=== PATIENT | female | born 1955 | race Two or more races ===

== ENCOUNTER 2025-02-18 11:45 | Inpatient (IN) | payer MEDICAID, OTHER ==
[~2025-02-18] VITALS: Ht 152.4 cm; Wt 64.7 kg
--- NOTE | 2025-02-18 12:17 | ED.PDOC ---
History of Present Illness HPI Comments 69 y/o F, with PMHx of HTN presents to the ED for CC of high blood pressure. Patient states, she has been experiencing hypertensive blood pressure readings with associated palpitations for multiple days. Patient reports, that she has been out of her blood pressure medications d/t recently losing medical coverage and has not taken medication since. Upon arrival to the ED, patient is hypertensive with a blood pressure of 210/105mmHg and is tachycardic with a HR of 129bpm. Patient was transferred to ED Bed 14 and care is ongoing at this time. 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 Family History Family History: Unknown Social History Smoker: Non-Smoker Alcohol: Denies ETOH Use Drugs: Denies Drug Use Lives In: Home Constitutional: denies: chills, diaphoresis, fatigue, fever, malaise, sweats, weakness, others EENTM: denies: blurred vision, double vision, ear bleeding, ear discharge, ear drainage, ear pain, ear ringing, eye pain, eye redness, hearing loss, mouth pain, mouth swelling, nasal discharge, nose bleeding, nose congestion, nose pain, photophobia, tearing, throat pain, throat swelling, voice changes, others Respiratory: denies: cough, hemoptysis, orthopnea, SOB at rest, shortness of breath, SOB with excertion, stridor, wheezing, others Cardiovascular: reports: palpitations; denies: chest pain, dizzy spells, diaphoresis, Dyspnea on exertion, edema, irregular heart beat, left arm pain, lightheadedness, PND, syncope, others Gastrointestinal: denies: abdomen distended, abdominal pain, blood streaked bowels, constipated, diarrhea, dysphagia, difficulty swallowing, hematemesis, melena, nausea, poor appetite, poor fluid intake, rectal bleeding, rectal pain, vomiting, others Genitourinary: denies: abnormal vagina bleeding, burning, dyspareunia, dysuria, flank pain, frequency, hematuria, incontinence, pain, , vagina discharge, urgency, others Neurological: denies: dizziness, fainting, headache, left sided numbness, left sided weakness, numbness, paresthesia, pre-existing deficit, right sided numbness, right sided weakness, seizure, speech problems, tingling, tremors, weakness, others Musculoskeletal: denies: back pain, gout, joint pain, joint swelling, muscle pain, muscle stiffness, neck pain, others Integumetry: denies: bruises, change in color, change in hair/nails, dryness, laceration, lesions, lumps, rash, wounds, others Allergic/Immunocompromised: denies: Difficulty Healing, Frequent Infections, Hives, Itching, others Hematologic/Lymphatic: denies: anemia, blood clots, easy bleeding, easy bruising, swollen glands, others Endocrine: denies: excessive hunger, excessive sweating, excessive thirst, excessive urination, flushing, intolerance to cold, intolerance to heat, unexplained weight gain, unexplained weight loss, others Psychiatric: denies: anxiety, bipolar disorder, depression, hopeless, panic disorder, schizophrenia, sleepless, suicidal, others All Other Systems: Reviewed and Negative Physical Exam General Appearance: No Apparent Distress, Normal HEENT: Normal ENT Inspection, Pharynx Normal Neck: Full Range of Motion, Non-Tender, Normal, Normal Inspection Respiratory: Chest Non-Tender, Lungs Clear, No Accessory Muscle Use, No Respiratory Distress, Normal Breath Sounds Cardiovascular: No Edema, No Murmur, No Gallop, Normal Peripheral Pulses, Tachycardia Breast Exam: Deferred Gastrointestinal: No Organomegaly, Non Tender, No Pulsatile Mass, Normal Bowel Sounds, Soft Genitalia: Deferred Pelvic: Deferred Rectal: Deferred Extremities: No calf tenderness, Normal capillary refill, Normal inspection, Normal range of motion, Non-tender, No pedal edema Musculoskeletal : Apperance: Normal Neurologic: Alert, sales ledger administrator II-XII nml as Tested, No Motor Deficits, Normal Affect, Normal Mood, No Sensory Deficits Cerebellar Function: Normal Reflexes: Normal Skin: Dry, Normal Color, Warm Lymphatic: No Adenopathy Was a procedure done? Was a procedure done?: No Differential Dx Considerations may include: Hypertensive Urgency, Hypertensive Crisis, Medical Non-compliance, Tachycardia X-Ray, Labs, Meds, VS Vital Signs Date Time Temp Pulse Resp B/P (MAP) Pulse Ox O2 Delivery O2 Flow Rate FiO2 02/18/25 14:00 98.3 119 19 135/69 (91) 95 98.3 02/18/25 13:51 193/90 02/18/25 12:24 98.3 133 19 209/97 (134) 95 98.3 02/18/25 12:24 133 19 95 Room Air* 0 21 02/18/25 12:07 127 02/18/25 11:58 129 02/18/25 11:47 98.6 148 18 210/105 98 98.6 Lab Test 02/18/25 13:50 02/18/25 12:30 Range/Units Troponin I High Sensitivity 11 9 </=34 ng/L White Blood Count 9.6 4.4-10.8 10^3/uL Red Blood Count 4.99 4.0-5.20 10^6/uL Hemoglobin 15.5 12.2-16.2 g/dL Hematocrit 46.1 H 36.0-46.0 % Mean Corpuscular Volume 92.3 80.0-100.0 fL Mean Corpuscular Hemoglobin 31.1 28.0-32.0 pg Mean Corpuscular Hemoglobin Concent 33.8 32.0-36.0 g/dL Red Cell Distribution Width 12.4 11.8-14.3 % Platelet Count 245 140-450 10^3/uL Mean Platelet Volume 8.0 6.9-10.8 fL Neutrophils (%) (Auto) 73.9 37.0-80.0 % Lymphocytes (%) (Auto) 19.5 10.0-50.0 % Monocytes (%) (Auto) 4.9 0.0-12.0 % Eosinophils (%) (Auto) 0.8 0.0-7.0 % Basophils (%) (Auto) 0.9 0.0-2.0 % Neutrophils # (Auto) 7.1 1.6-8.6 10 ^3/uL Lymphocytes # (Auto) 1.9 0.4-5.4 10 ^3/uL Monocytes # (Auto) 0.5 0-1.3 10 ^3/uL Eosinophils # (Auto) 0.1 0-0.8 10 ^3/uL Basophils # (Auto) 0.1 0-0.2 10 ^3/uL Nucleated Red Blood Cells 0.2 % Sodium Level 134 L 136-145 mmol/L Potassium Level 3.8 3.5-5.1 mmol/L Chloride Level 101 98-107 mmol/L Carbon Dioxide Level 19 L 20-31 mmol/L Anion Gap 14 5-15 Blood Urea Nitrogen 8 L 9-23 mg/dL Creatinine 1.00 0.550-1.02 mg/dL Glomerular Filtration Rate Calc 60 >90 mL/min BUN/Creatinine Ratio 8.0 L 10.0-20.0 Serum Glucose 205 H 74-106 mg/dL Calcium Level 8.6 L 8.7-10.4 mg/dL B-Type Natriuretic Peptide 21.42 0-100 pg/mL Current Medications Medications (Trade) Dose Ordered Sig/Dolly Route Start Time Stop Time Status Last Admin Hydralazine HCl (Apresoline Injection) 20 mg ONCE ONCE IV 02/18/25 13:30 02/18/25 13:34 DC 02/18/25 13:51 Sodium Chloride 1,000 ml @ 1,000 mls/hr Q1H ONCE IV 02/18/25 14:30 02/18/25 15:29 02/18/25 14:34 [place] [id number] Ph: [phone] DIAGNOSTIC IMAGING Diagnostic Imaging Report : [id number] Signed PATIENT: JOSEFA LEA ACCT: [id number] UNIT: [id number] : 1955 LOC: ER ROOM / BED: / AGE / SEX: 69 / F ADM STATUS: REG ER SERVICE 1202 ORDERING PHYSICIAN: KEELEY VELEZ MD PROCEDURE(s): CXRP - CHEST PORTABLE REASON: cp ORDER NUMBER(s): [id number], ACCESSION NUMBER(s): [id number] CHEST RADIOGRAPH INDICATION: cp TECHNIQUE: Single frontal view of the chest was obtained COMPARISON: None FINDINGS: Lines and Tubes: None Lungs: No focal consolidation. Pleura: No effusion. No pneumothorax. Cardiomediastinal contours: Unremarkable Bones: No acute osseous abnormality. IMPRESSION: 1. No acute cardiopulmonary disease. ATED BY: BALJIT SWAN MD DICTATED DATE/TIME: 12/14/25 1256 SIGNED BY: BALJIT SWAN MD SIGNED DATE/TIME: 02/18/251255 CC: Time of 1ST Reevaluation: 12:30 Reevaluation 1ST: Improved Patient Education/Counseling: Diagnosis, Treatment Family Education/Counseling: No Family Present SEPSIS Sepsis Screen Date sepsis recognized/suspect: Feb 18, 2025 Time Sepsis recognized/suspect: 1151 Recent Procedure: No On Antibiotic Therapy: No Respiratory Rate >20: No Heart Rate >90: No Temp<36 C (96.8 F) or >38.3 C: No SBP <90 or MAP <65 mmHG: No New Acute Mental Status Change: No Is the patient on CPAP, BIPAP,: No Physician Orders Electrocardigram (02/18/25 11:59) Urinalysis (02/18/25 12:02) Chest Portable (02/18/25 12:02) Troponin-I Hs (02/18/25 15:02) Electrocardigram (02/18/25 13:02) Electrocardigram (02/18/25 15:02) Sodium Chloride 0.9% (02/18/25 14:30) Vital Signs Date Time Temp Pulse Resp B/P (MAP) Pulse Ox O2 Delivery O2 Flow Rate FiO2 02/18/25 14:00 98.3 119 19 135/69 (91) 95 98.3 02/18/25 13:51 193/90 02/18/25 12:24 98.3 133 19 209/97 (134) 95 98.3 02/18/25 12:24 133 19 95 Room Air* 0 21 02/18/25 12:07 127 02/18/25 11:58 129 02/18/25 11:47 98.6 148 18 210/105 98 98.6 Laboratory Tests Test 02/18/25 12:30 White Blood Count 9.6 10^3/uL (4.4-10.8) Medications Medications Dose Ordered Sig/Dolly Route Start Time Stop Time Status Last Admin Dose Admin Hydralazine HCl 20 mg ONCE ONCE IV 02/18/25 13:30 02/18/25 13:34 DC 02/18/25 13:51 Sodium Chloride 1,000 ml @ 1,000 mls/hr Q1H ONCE IV 02/18/25 14:30 02/18/25 15:29 02/18/25 14:34 Departure 1 Departure Time of Disposition: 15:12 (Patient presented with hypertension and symptoms concerning for hypertensive emergency. Patient is receiving iv blood pressure medications requiring intensive monitoring. Data: 1. I ordered and reviewed the result of at least 3 labs including a CBC, BMP, and Urinalysis. 2. I independently interpreted the following tests: CT Brain: Which appears benign. EKG which is Normal Sinus RhythmRisk:This patient has a high risk of morbidity due to further diagnostic testing or treatment and may suffer from an acute cardiac disorder. Workup reveals hypertensive emergency and patient should be admitted for further workup. and possible expert consultation. ) Impression: Primary Impression: Hypertensive urgency Additional Impression: Palpitations Disposition: ADMITTED INPATIENT Admit to: Tele Condition: Guarded Critical Care Note Critical Care Time?: Yes Critical care comment: Hypertensive urgency Authorized and Performed by: Keeley Velez MD Total critical care time: Approximately 39 minutes Due to a high probability of clinically significant, life threatening deterioration, the patient required my highest level of preparedness to intervene emergently and I personally spent this critical care time directly and personally managing the patient. This critical care time included obtaining a history; examining the patient; pulse oximetry; ordering and review of studies; arranging urgent treatment with development of a management plan; evaluation of patient's response to treatment; frequent reassessment; and, discussions with other providers. This critical care time was performed to assess and manage the high probability of imminent, life-threatening deterioration that could result in multi-organ failure. It was exclusive of separately billable procedures and treating other patients and teaching time. Please see my other sections and the rest of the note for further information on patient assessment and treatment. Stability Stability form required: No Heart Score Heart Score: Heart Score Response (Comments) Value History Moderate Suspicious 1 EKG N/A 0 Age >65 2 Risk Factors 1 or 2 risk factors 1 Troponin N/A 0 Total 4 I personally scribed for KEELEY VELEZ MD ([email or web address]) on 02/18/25 at 12:17. Electronically submitted by Rosalina Batista ([email or web address]). I personally scribed for KEELEY VELEZ MD ([email or web address]) on 02/18/25 at 14:51. Electronically submitted by Rosalian Batista ([email or web address]). KEELEY VELEZ MD Feb 18, 2025 12:17
[2025-02-18 12:24] VITALS: PULSE 133; RESP 19; O2SAT 95
[2025-02-18 12:53] LABS: Hematocrit 46.1 % (36.0-46.0); Hemoglobin 15.5 g/dL (12.2-16.2); Mean Corpuscular Hemoglobin 31.1 pg (28.0-32.0); Mean Corpuscular Volume 92.3 fL (80.0-100.0); Nucleated Red Blood Cells % 0.2 %
--- NOTE | 2025-02-18 12:58 | DVH ---
CHEST RADIOGRAPH INDICATION: cp TECHNIQUE: Single frontal view of the chest was obtained COMPARISON: None FINDINGS: Lines and Tubes: None Lungs: No focal consolidation. Pleura: No effusion. No pneumothorax. Cardiomediastinal contours: Unremarkable Bones: No acute osseous abnormality. IMPRESSION: 1. No acute cardiopulmonary disease.
[2025-02-18 12:59] LABS: Chloride 101 mmol/L (98-107); Potassium 3.8 mmol/L (3.5-5.1)
[2025-02-18 13:00] LABS: Anion Gap 14 (5-15)
[2025-02-18 13:01] LABS: Calcium 8.6 mg/dL (8.7-10.4); Carbon Dioxide 19 mmol/L (20-31); Sodium 134 mmol/L (136-145)
[2025-02-18 13:05] LABS: BUN/Creatinine Ratio 8.0 (10.0-20.0)
[2025-02-18 13:07] LABS: Blood Urea Nitrogen 8 mg/dL (9-23); Glucose 205 mg/dL (74-106)
[2025-02-18] MEDS: hydrALAZINE HCL 20 MG/ML VL IV ONE (13:51)
[2025-02-18] MEDS: SODIUM CHLORIDE 0.9% 1,000 ML IV ONE (14:34)
[2025-02-18] MEDS ORDERED: hydrALAZINE HCL 20 MG/ML VL IV PRN (19:15)
[2025-02-18] MEDS ORDERED: ONDANSETRON HCL 4 MG/2 ML VIAL IV PRN (19:15)
[2025-02-18 19:23] LABS: Urine Protein, UAD Negative (Negative)
[2025-02-18] MEDS: METOPROLOL TARTRATE 25 MG TAB PO ONE (20:14)
--- NOTE | 2025-02-18 23:36 | DVHHP2 ---
History of Present Illness Reason for Visit: Hypertension History of Present Illness 69-year-old female presents for evaluation of hypertension. Patient reports having elevated blood pressure readings over the past couple of days. Patient reports also developing palpitations this afternoon. Denies chest pain or shortness for breath. Patient reports not taking her antihypertensives for eight months since losing her insurance. Past Medical History Hypertension Past Surgical History Denies Family History Noncontributory Smoke: No ALCOHOL: none Drugs: None Lives: with Family Review of Systems Review of Systems Review of systems are currently negative otherwise addressed in HPI. Allergies: Coded Allergies: NO KNOWN ALLERGIES (Unverified , 02/18/25) Medications Current Medications Medications Dose Ordered Sig/Dolly Route Start Time Stop Time Status Last Admin Dose Admin Hydralazine HCl 10 mg Q6HP PRN IV 02/18/25 19:15 Ondansetron HCl 4 mg Q4HP PRN IV 02/18/25 19:15 Acetaminophen 650 mg Q6HP PRN PO 02/18/25 19:15 Exam Vital Signs Vital Signs Date Time Temp Pulse Resp B/P (MAP) Pulse Ox O2 Delivery O2 Flow Rate FiO2 02/18/25 22:30 98.0 77 18 129/77 (94) 96 98.0 02/18/25 19:30 Room Air* 0 21 Exam Gen: 69-year-old female in mild distress Skin: Warm, dry, normal color and texture, no rash. HEENT: Normocephalic atraumatic, mucous membranes moist and pink. Neck: Cervical and supraclavicular nodes normal without enlargement, trachea is midline, thyroid gland is normal without masses. Pulmonary: Clear to auscultation and percussion bilaterally. Cardiac: Regular rate and rhythm. No murmur Abdomen: Soft, nontender, nondistended, bowel sounds present all 4 quadrants, no guarding, no rigidity, no organomegaly. Extremities: No cyanosis, clubbing, no edema Neuro: Cranial nerves II through XII grossly intact, normal affect and speech, no focal motor deficits. Labs/Xrays ORDERING PHYSICIAN: KEELEY VELEZ MD PROCEDURE(s): CXRP - CHEST PORTABLE REASON: cp ORDER NUMBER(s): [id number], ACCESSION NUMBER(s): [id number] CHEST RADIOGRAPH INDICATION: cp TECHNIQUE: Single frontal view of the chest was obtained COMPARISON: None FINDINGS: Lines and Tubes: None Lungs: No focal consolidation. Pleura: No effusion. No pneumothorax. Cardiomediastinal contours: Unremarkable Bones: No acute osseous abnormality. IMPRESSION: 1. No acute cardiopulmonary disease. ATED BY: BALJIT ARBOLEDA MD Labs Test 02/18/25 19:00 02/18/25 15:28 02/18/25 12:30 Range/Units Urine Color Light-yellow Yellow Urine Clarity Clear Clear Urine pH 6.0 5.0-9.0 Urine Specific [place] 1.011 1.001-1.035 Urine Protein Negative Negative Urine Ketones 2+ H Negative Urine Blood Trace H Negative /uL Urine Nitrite Negative Negative Urine Bilirubin Negative Negative Urine Urobilinogen Normal Negative mg/dL Urine Leukocyte Esterase Negative Negative /uL Urine RBC 3 0 - 4 /hpf Urine Microscopic WBC 1 0-5 /HPF Urine Squamous Epithelial Cells Few <5 /hpf Urine Bacteria None seen None Seen /hpf Urine Glucose 2+ H Normal mg/dL Troponin I High Sensitivity 19 </=34 ng/L White Blood Count 9.6 4.4-10.8 10^3/uL Red Blood Count 4.99 4.0-5.20 10^6/uL Hemoglobin 15.5 12.2-16.2 g/dL Hematocrit 46.1 H 36.0-46.0 % Mean Corpuscular Volume 92.3 80.0-100.0 fL Mean Corpuscular Hemoglobin 31.1 28.0-32.0 pg Mean Corpuscular Hemoglobin Concent 33.8 32.0-36.0 g/dL Red Cell Distribution Width 12.4 11.8-14.3 % Platelet Count 245 140-450 10^3/uL Mean Platelet Volume 8.0 6.9-10.8 fL Neutrophils (%) (Auto) 73.9 37.0-80.0 % Lymphocytes (%) (Auto) 19.5 10.0-50.0 % Monocytes (%) (Auto) 4.9 0.0-12.0 % Eosinophils (%) (Auto) 0.8 0.0-7.0 % Basophils (%) (Auto) 0.9 0.0-2.0 % Neutrophils # (Auto) 7.1 1.6-8.6 10 ^3/uL Lymphocytes # (Auto) 1.9 0.4-5.4 10 ^3/uL Monocytes # (Auto) 0.5 0-1.3 10 ^3/uL Eosinophils # (Auto) 0.1 0-0.8 10 ^3/uL Basophils # (Auto) 0.1 0-0.2 10 ^3/uL Nucleated Red Blood Cells 0.2 % Sodium Level 134 L 136-145 mmol/L Potassium Level 3.8 3.5-5.1 mmol/L Chloride Level 101 98-107 mmol/L Carbon Dioxide Level 19 L 20-31 mmol/L Anion Gap 14 5-15 Blood Urea Nitrogen 8 L 9-23 mg/dL Creatinine 1.00 0.550-1.02 mg/dL Glomerular Filtration Rate Calc 60 >90 mL/min BUN/Creatinine Ratio 8.0 L 10.0-20.0 Serum Glucose 205 H 74-106 mg/dL Calcium Level 8.6 L 8.7-10.4 mg/dL B-Type Natriuretic Peptide 21.42 0-100 pg/mL SEPSIS Sepsis Screen Date sepsis recognized/suspect: Feb 18, 2025 Time Sepsis recognized/suspect: 2105 Recent Procedure: No On Antibiotic Therapy: No Respiratory Rate >20: No Heart Rate >90: Yes Temp<36 C (96.8 F) or >38.3 C: No SBP <90 or MAP <65 mmHG: No New Acute Mental Status Change: No Is the patient on CPAP, BIPAP,: No Physician Orders Basic Metabolic Panel (02/19/25 04:00) Admit (02/18/25 19:11) Ondansetron Hcl (Zofran) (02/18/25 19:15) Cardiac Diet-2gna,Lofat,Lochol (02/19/25 Breakfast) Echo 2d Mode Cardiac Dop (02/18/25 19:11) Condition: Stable (02/18/25 19:11) Acetaminophen Tablet (Tylenol Tablet) (02/18/25 19:15) Bedrest With Bathroom Privileg (02/18/25 19:11) Hydralazine Injection (Apresoline Inject (02/18/25 19:15) Hemoglobin A1c (02/18/25 23:32) Thyroid Stimulating Hormone (02/18/25 23:32) Lipid Panel (02/18/25 23:32) Lisinopril Tablet (Zestril Tablet) (02/19/25 10:00) Vital Signs Date Time Temp Pulse Resp B/P (MAP) Pulse Ox O2 Delivery O2 Flow Rate FiO2 02/18/25 22:30 98.0 77 18 129/77 (94) 96 98.0 02/18/25 21:39 73 139/76 02/18/25 21:17 82 19 139/76 (97) 96 02/18/25 20:14 137 133/70 02/18/25 20:00 77 20 133/70 (91) 97 02/18/25 19:30 99.0 108 20 141/82 (101) 96 99.0 02/18/25 19:30 Room Air* 0 21 02/18/25 18:00 98.3 108 23 131/76 (94) 95 98.3 02/18/25 16:00 98.3 111 23 129/75 (93) 95 98.3 02/18/25 16:00 124 Laboratory Tests Test 02/18/25 12:30 White Blood Count 9.6 10^3/uL (4.4-10.8) Medications Medications Dose Ordered Sig/Dolly Route Start Time Stop Time Status Last Admin Dose Admin Hydralazine HCl 20 mg ONCE ONCE IV 02/18/25 13:30 02/18/25 13:34 DC 02/18/25 13:51 20 MG Metoprolol Tartrate 25 mg ONCE ONCE PO 02/18/25 19:15 02/18/25 19:23 DC 02/18/25 20:14 25 MG Sodium Chloride 1,000 ml @ 1,000 mls/hr Q1H ONCE IV 02/18/25 14:30 02/18/25 15:29 DC 02/18/25 14:34 1,000 MLS/HR Assessment/Plan Assessment/Plan Assessment Hypertensive urgency Hyperglycemia Plan Admit the patient to [facility] to the hospitalist Echocardiogram pending Resume home medications As needed antihypertensives Continue treatment per orders. Plan discussed with: Patient My Orders Orders - BIANCA STERN Procedure Category Date Status Time Basic Metabolic Panel LAB 02/19/25 Verified 04:00 Admit ADMIT 02/18/25 Transmitted 19:11 Ondansetron Hcl PHA 02/18/25 In Process (Zofran) 19:15 Cardiac DIET 02/19/25 Transmitted Diet-2gna,Lofat,Lochol Breakfast Echo 2d Mode Cardiac US 02/18/25 Logged DOP 19:11 Condition: Stable KYLE 02/18/25 In Process 19:11 Acetaminophen Tablet PHA 02/18/25 In Process (Tylenol Tablet) 19:15 Bedrest With Bathroom KYLE 02/18/25 In Process Privileg 19:11 Hydralazine Injection PHA 02/18/25 In Process (Apresoline Inject 19:15 Hemoglobin A1c LAB 02/18/25 Transmitted 23:32 Thyroid Stimulating LAB 02/18/25 Transmitted Hormone 23:32 Lipid Panel LAB 02/18/25 Transmitted 23:32 Lisinopril Tablet PHA 02/19/25 Transmitted (Zestril Tablet) 10:00 Date of Service: Feb 18, 2025 Billing Provider: BIANCA STERN Common Visit Codes: [id number] INP/OBS CARE (HIGH) BIANCA STERN Feb 18, 2025 23:36
[2025-02-19 00:11] LABS: HDL Cholesterol 46 mg/dL (40-59)
[2025-02-19 00:16] LABS: Cholesterol 224 mg/dL (< 200); Triglycerides 170 mg/dL (< 150)
[2025-02-19] MEDS: ACETAMINOPHEN 325 MG TAB PO PRN (07:36)
[2025-02-19 08:55] LABS: Chloride 106 mmol/L (98-107); Potassium 3.7 mmol/L (3.5-5.1); Sodium 139 mmol/L (136-145)
[2025-02-19 08:56] LABS: Anion Gap 11 (5-15); Calcium 9.3 mg/dL (8.7-10.4); Carbon Dioxide 22 mmol/L (20-31)
[2025-02-19 09:01] LABS: BUN/Creatinine Ratio 9.0 (10.0-20.0)
[2025-02-19 09:02] LABS: Blood Urea Nitrogen 7 mg/dL (9-23); Glucose 172 mg/dL (74-106)
[2025-02-19] MEDS: LISINOPRIL 5 MG TAB PO SCH (09:27)
--- NOTE | 2025-02-19 10:28 | ECG ---
[facility] Test Date: 2025-02-18 Test Time: 11:58:07 Pat Name: JOSEFA LEA Department: ER Room: [address] [place] [address] Gender: F Sole Tier: JESÚS : 1955 Requested By: KEELEY VELEZ Order Number: [id number] Reading MD: Measurements Intervals [place] Rate: 129 P: 84 CT: 182 QRS: 41 QRSD: 80 T: -75 QT: 312 QTc: 458 Interpretive Statements Sinus tachycardia Low voltage, precordial leads Abnormal R-wave progression, early transition Nonspecific T abnormalities, diffuse leads Please click the below link to view image of tracing.
[2025-02-19 11:53] VITALS: PULSE 109; RESP 25; O2SAT 99
--- NOTE | 2025-02-19 13:07 | DVHSR ---
APPROVED REPORT EXAM: Two-dimensional and M-mode echocardiogram with Doppler and color Doppler. Blood Pressure: 159/89 mmHg INDICATION HTN RISK FACTORS Height: 5'0", Weight: 142 DIMENSIONS LVDd (3.8-5.7cm) LA (2D) 2.9 (1.9-4.0cm) Aortic Root 3.2 (2.0-3.7cm) LVDs (2.5-4.0cm) LA (MM) (1.9-4.0cm) Aortic Cusp Exc 1.5 (1.5-2.0cm) EF (%) 57.0 (55-70%) Rt. Atrium 3.3 (1.9-4.0cm) Asc. Aorta cm Mitral Valve Mitral Mitral Stenosis E wave 0.76m/s MV Mean GR. mmHg A wave 1.14m/s MV Peak GR. mmHg E/A ratio 0.7 2D MVA cm2 DECEL Time 104ms PRESS 1/2 Time ms Aortic Valve Aortic Valve Aortic Stenosis V1 1.19m/s AO Mean GR. 4mmHg V2 1.25m/s AO Peak GR. 6mmHg LVOT Diameter 1.8 (1.8-2.4cm) Doppler FLAQUITA 2.42cm2 Other Information Quality : Limited Rhythm : Technically limited study due to body habitus. Conclusion lvef 65% grade 1 diastolic dysfunction normal rv function limited study
[2025-02-19] MEDS ORDERED: LISI-275 PO (13:26)
[2025-02-19] MEDS ORDERED: ATOR20TA50 PO (13:26)
--- NOTE | 2025-02-19 13:35 | DVHHPRES ---
History of Present Illness Resident Creating Document: EBEN BARRIOS RESIDENT Smoke: No ALCOHOL: none Drugs: None Lives: with Family Review of Systems Allergies: Coded Allergies: NO KNOWN ALLERGIES (Unverified , 02/18/25) Medications Current Medications Medications Dose Ordered Sig/Dolly Route Start Time Stop Time Status Last Admin Dose Admin Hydralazine HCl 10 mg Q6HP PRN IV 02/18/25 19:15 Ondansetron HCl 4 mg Q4HP PRN IV 02/18/25 19:15 Acetaminophen 650 mg Q6HP PRN PO 02/18/25 19:15 02/19/25 07:36 650 MG Lisinopril 10 mg DAILY PO 02/19/25 10:00 02/19/25 09:27 10 MG Atorvastatin Calcium 40 mg HS PO 02/19/25 22:00 Exam Vital Signs Vital Signs Date Time Temp Pulse Resp B/P (MAP) Pulse Ox O2 Delivery O2 Flow Rate FiO2 02/19/25 11:53 109 25 99 Room Air* 0 21 02/19/25 10:15 97.7 117/63 (81) 97.7 Labs/Xrays Labs Test 02/19/25 06:59 02/18/25 19:00 02/18/25 15:28 02/18/25 12:30 Range/Units Sodium Level 139 # 136-145 mmol/L Potassium Level 3.7 3.5-5.1 mmol/L Chloride Level 106 98-107 mmol/L Carbon Dioxide Level 22 20-31 mmol/L Anion Gap 11 5-15 Blood Urea Nitrogen 7 L 9-23 mg/dL Creatinine 0.78 0.550-1.02 mg/dL Glomerular Filtration Rate Calc 81 >90 mL/min BUN/Creatinine Ratio 9.0 L 10.0-20.0 Serum Glucose 172 H 74-106 mg/dL Calcium Level 9.3 8.7-10.4 mg/dL Urine Color Light-yellow Yellow Urine Clarity Clear Clear Urine pH 6.0 5.0-9.0 Urine Specific [place] 1.011 1.001-1.035 Urine Protein Negative Negative Urine Ketones 2+ H Negative Urine Blood Trace H Negative /uL Urine Nitrite Negative Negative Urine Bilirubin Negative Negative Urine Urobilinogen Normal Negative mg/dL Urine Leukocyte Esterase Negative Negative /uL Urine RBC 3 0 - 4 /hpf Urine Microscopic WBC 1 0-5 /HPF Urine Squamous Epithelial Cells Few <5 /hpf Urine Bacteria None seen None Seen /hpf Urine Glucose 2+ H Normal mg/dL Troponin I High Sensitivity 19 </=34 ng/L Triglycerides Level 170 H < 150 mg/dL Cholesterol Level 224 H < 200 mg/dL LDL Cholesterol 170 H < 100 mg/dL HDL Cholesterol 46 40-59 mg/dL Thyroid Stimulating Hormone (TSH) 0.80 0.55-4.78 uIU/mL White Blood Count 9.6 4.4-10.8 10^3/uL Red Blood Count 4.99 4.0-5.20 10^6/uL Hemoglobin 15.5 12.2-16.2 g/dL Hematocrit 46.1 H 36.0-46.0 % Mean Corpuscular Volume 92.3 80.0-100.0 fL Mean Corpuscular Hemoglobin 31.1 28.0-32.0 pg Mean Corpuscular Hemoglobin Concent 33.8 32.0-36.0 g/dL Red Cell Distribution Width 12.4 11.8-14.3 % Platelet Count 245 140-450 10^3/uL Mean Platelet Volume 8.0 6.9-10.8 fL Neutrophils (%) (Auto) 73.9 37.0-80.0 % Lymphocytes (%) (Auto) 19.5 10.0-50.0 % Monocytes (%) (Auto) 4.9 0.0-12.0 % Eosinophils (%) (Auto) 0.8 0.0-7.0 % Basophils (%) (Auto) 0.9 0.0-2.0 % Neutrophils # (Auto) 7.1 1.6-8.6 10 ^3/uL Lymphocytes # (Auto) 1.9 0.4-5.4 10 ^3/uL Monocytes # (Auto) 0.5 0-1.3 10 ^3/uL Eosinophils # (Auto) 0.1 0-0.8 10 ^3/uL Basophils # (Auto) 0.1 0-0.2 10 ^3/uL Nucleated Red Blood Cells 0.2 % Hemoglobin A1c 8.1 H <5.7 % A1C B-Type Natriuretic Peptide 21.42 0-100 pg/mL SEPSIS Sepsis Screen Date sepsis recognized/suspect: Feb 19, 2025 Time Sepsis recognized/suspect: 1119 Recent Procedure: No On Antibiotic Therapy: No Respiratory Rate >20: No Heart Rate >90: No Temp<36 C (96.8 F) or >38.3 C: No SBP <90 or MAP <65 mmHG: No New Acute Mental Status Change: No Is the patient on CPAP, BIPAP,: No Physician Orders Atorvastatin (Lipitor) (02/19/25 22:00) Discharge (02/19/25 13:21) Schedule For Dc Clinic F/U (02/19/25 13:21) Vital Signs Date Time Temp Pulse Resp B/P (MAP) Pulse Ox O2 Delivery O2 Flow Rate FiO2 02/19/25 11:53 109 25 99 Room Air* 0 21 02/19/25 10:15 97.7 91 18 117/63 (81) 97 97.7 02/19/25 09:27 132/75 02/19/25 08:30 97.7 87 19 123/66 (85) 97 97.7 02/19/25 07:30 Room Air* 0 21 02/19/25 07:20 97.6 79 15 159/89 (112) 97 97.6 02/19/25 05:35 67 15 140/71 (94) 96 Medications Medications Dose Ordered Sig/Dolly Route Start Time Stop Time Status Last Admin Dose Admin Lisinopril 10 mg DAILY PO 02/19/25 10:00 02/19/25 09:27 10 MG EBEN BARRIOS RESIDENT Feb 19, 2025 13:35
--- NOTE | 2025-02-19 13:41 | DVHDSRES ---
Discharge Summary Date of Admission Resident Creating Document: EBEN BARRIOS Feb 18, 2025 at 19:11 Date of Discharge: Feb 19, 2025 Admitting Diagnosis Hypertensive urgency Labs/Diagnostic Data: Laboratory Results Test 02/19/25 06:59 02/18/25 19:00 02/18/25 15:28 02/18/25 12:30 Sodium Level 139 mmol/L (136-145) Potassium Level 3.7 mmol/L (3.5-5.1) Chloride Level 106 mmol/L (98-107) Carbon Dioxide Level 22 mmol/L (20-31) Anion Gap 11 (5-15) Blood Urea Nitrogen 7 mg/dL (9-23) Creatinine 0.78 mg/dL (0.550-1.02) Glomerular Filtration Rate Calc 81 mL/min (>90) BUN/Creatinine Ratio 9.0 (10.0-20.0) Serum Glucose 172 mg/dL (74-106) Calcium Level 9.3 mg/dL (8.7-10.4) Urine Color Light-yellow (Yellow) Urine Clarity Clear (Clear) Urine pH 6.0 (5.0-9.0) Urine Specific [place] 1.011 (1.001-1.035) Urine Protein Negative (Negative) Urine Ketones 2+ (Negative) Urine Blood Trace /uL (Negative) Urine Nitrite Negative (Negative) Urine Bilirubin Negative (Negative) Urine Urobilinogen Normal mg/dL (Negative) Urine Leukocyte Esterase Negative /uL (Negative) Urine RBC 3 /hpf (0 - 4) Urine Microscopic WBC 1 /HPF (0-5) Urine Squamous Epithelial Cells Few /hpf (<5) Urine Bacteria None seen /hpf (None Seen) Urine Glucose 2+ mg/dL (Normal) Troponin I High Sensitivity 19 ng/L (</=34) Triglycerides Level 170 mg/dL (< 150) Cholesterol Level 224 mg/dL (< 200) LDL Cholesterol 170 mg/dL (< 100) HDL Cholesterol 46 mg/dL (40-59) Thyroid Stimulating Hormone (TSH) 0.80 uIU/mL (0.55-4.78) White Blood Count 9.6 10^3/uL (4.4-10.8) Red Blood Count 4.99 10^6/uL (4.0-5.20) Hemoglobin 15.5 g/dL (12.2-16.2) Hematocrit 46.1 % (36.0-46.0) Mean Corpuscular Volume 92.3 fL (80.0-100.0) Mean Corpuscular Hemoglobin 31.1 pg (28.0-32.0) Mean Corpuscular Hemoglobin Concent 33.8 g/dL (32.0-36.0) Red Cell Distribution Width 12.4 % (11.8-14.3) Platelet Count 245 10^3/uL (140-450) Mean Platelet Volume 8.0 fL (6.9-10.8) Neutrophils (%) (Auto) 73.9 % (37.0-80.0) Lymphocytes (%) (Auto) 19.5 % (10.0-50.0) Monocytes (%) (Auto) 4.9 % (0.0-12.0) Eosinophils (%) (Auto) 0.8 % (0.0-7.0) Basophils (%) (Auto) 0.9 % (0.0-2.0) Neutrophils # (Auto) 7.1 10 ^3/uL (1.6-8.6) Lymphocytes # (Auto) 1.9 10 ^3/uL (0.4-5.4) Monocytes # (Auto) 0.5 10 ^3/uL (0-1.3) Eosinophils # (Auto) 0.1 10 ^3/uL (0-0.8) Basophils # (Auto) 0.1 10 ^3/uL (0-0.2) Nucleated Red Blood Cells 0.2 % Hemoglobin A1c 8.1 % A1C (<5.7) B-Type Natriuretic Peptide 21.42 pg/mL (0-100) Other Laboratory Tests 02/19/25 06:59 02/18/25 12:30 Brief Hx & Hospital Course: Josefa Valentine, 69-year-old female with past medical history of hypertension noncompliance with medications, diabetes mellitus not on any medications, controlled by healthy lifestyle modifications? Due to the year after measuring her blood pressure systolic high in the 186 diastolic the patient could not remember. After admission the patient received metoprolol and hydralazine IV for controlling blood pressure. Her blood pressure was controlled. Lipid Profile revealed she has hyperlipidemia. Chest x-ray was done, which revealed no acute abnormality. The patient and the was thoroughly explained the plan and treatment in the importance of medication compliance. The patient was stable on the day of discharge. She is advised to follow up outpatient with primary care doctor, [facility]. The patient was tolerating ora food and was hemodynamically stable. She verbalized understanding the treatment and discharge plan. The patient is discharged on atorvastatin and lisinopril. Pt is lying on bed General Appearance: Alert, Oriented X3, Cooperative, Mild distress HEENT: Atraumatic, Mucous membranes moist/pink Respiratory: Clear to auscultation, Normal air movement, No added sounds Cardiovascular: Regular rate, Normal S1, Normal S2, No murmurs Abdominal/ : Active bowel sounds, Soft, no distention, no tenderness Extremities: No edema, Normal pulses, No tenderness/swelling Skin: No Significant rash, except past surgical scars Neuro: Normal speech, sensorimotor deficits none Psych/Mental Status: Mental status NL, Mood NL Nurse was there as security assessor during examination Operations or Procedures PATIENT: JOSEFA VALENTINE ACCT: [id number] UNIT: [id number] : 1955 LOC: ER ROOM / BED: / AGE / SEX: 69 / F ADM STATUS: REG ER SERVICE 1202 ORDERING PHYSICIAN: KEELEY VELEZ MD PROCEDURE(s): CXRP - CHEST PORTABLE REASON: cp ORDER NUMBER(s): [id number], ACCESSION NUMBER(s): [id number] CHEST RADIOGRAPH INDICATION: cp TECHNIQUE: Single frontal view of the chest was obtained COMPARISON: None FINDINGS: Lines and Tubes: None Lungs: No focal consolidation. Pleura: No effusion. No pneumothorax. Cardiomediastinal contours: Unremarkable Bones: No acute osseous abnormality. IMPRESSION: 1. No acute cardiopulmonary disease. Condition at Discharge: Stable Final Diagnosis/Problems List Hypertensive urgency Hyperlipidemia Type 2 diabetes mellitus Discharge Disposition: Home Discharge Instruct/Medications Diet: Cardiac 2g Na,low cholest Diet comment: Low-salt and dash diet Activity: No Restrictions, As Tolerated Follow Up/Referral: PCP and discharge Clinic Medications: Lisinopril 10 mg daily Scheduled Atorvastatin Calcium (Atorvastatin Calcium), 40 MG PO HS Lisinopril (Lisinopril), 10 MG PO DAILY Discharge Statement: "Patient was advised to return to the ER or call 911 if any headaches, dizziness, shortness of breath, chest pain, abdominal pain, bleeding, fevers, or worsening of medical condition. Patient was counseled about treatment plan, medications, possible side effects, patientverbalized understanding. All questions were answered to the best of my ability. This discharge took greater then 30 minutes in planning, reviewing documentation, counseling the patient, and discussing with other team members." ASSESSMENT ASSESSMENT Assessment Hypertensive urgency Visit Coding STANDARD RES Billing Provider: HORACIO BARRIENTOS MD Date of Service if different f: Feb 19, 2025 Common Visit Codes: 71950-NGR/OBS DISCH DAY >30min EBEN BARRIOS RESIDENT Feb 19, 2025 13:41 HORACIO BARRIENTOS MD Feb 20, 2025 18:45
[2025-02-19 14:15] VITALS: BP 150/84; PULSE 100; RESP 18; TEMP 98.5; O2SAT 99
[2025-02-19] MEDS ORDERED: ATORVASTATIN 20 MG TAB PO SCH (22:00)
== END 2025-02-19 14:56 | disposition home or self-care (01) | DRG 199 ==
LOC: ER 11:45 → OVERFLOW 19:11
PROVIDERS: ADMIT Internal Medicine Geriatric Medicine; ATTEND Internal Medicine Geriatric Medicine
DX: I16.0 Hypertensive urgency (principal); E11.65 Type 2 diabetes mellitus with hyperglycemia; E78.5 Hyperlipidemia, unspecified; Z79.899 Other long term (current) drug therapy
CPT/HCPCS: 36415; 71045; 80048; 80061; 81001; 83036; 83880; 84443; 84484; 85025; 93005; 93306; 96361; 96374; 99291; G0378